=== PATIENT | male | born 2000 | race Caucasian/White ===

== ENCOUNTER 2021-10-07 14:28 | Emergency (ER) | payer OTHER | END 2021-10-07 15:21 | disposition home or self-care (01) | LOC: ER1 14:28 | DX: I73.00 Raynaud's syndrome without gangrene (principal) | CPT/HCPCS: 99283 ==

== ENCOUNTER 2022-01-25 18:34 | Emergency (ER) | payer BC ==
[2022-01-25] MEDS ORDERED: NAPROXEN500 MG PO (20:40)
== END 2022-01-25 21:04 | disposition home or self-care (01) ==
LOC: ER1 18:34
DX: S93.601A Unspecified sprain of right foot, initial encounter (principal); W10.9XXA Fall (on) (from) unspecified stairs and steps, initial encounter
CPT/HCPCS: 29515; 73610; 73630; 99283

== ENCOUNTER → 2022-02-04 | Outpatient (CLI) | payer BC ==
[~2022-02-04] MED LIST: NAPROXEN500 MG PO
== END ==
LOC: KOH-I 11:14
DX: S92.021A Displaced fracture of anterior process of right calcaneus, initial encounter for closed fracture (principal)
CPT/HCPCS: 73700

== ENCOUNTER → 2022-03-03 | Outpatient (CLI) | payer BC | LOC: KOH-I 15:27 | DX: S92.021D Displaced fracture of anterior process of right calcaneus, subsequent encounter for fracture with routine healing (principal); X58.XXXA Exposure to other specified factors, initial encounter | CPT/HCPCS: 73650 ==